=== PATIENT | female | born 1990 | race Caucasian/White ===

== ENCOUNTER 2019-04-21 10:35 | Inpatient (IN) | payer OTHER ==
[~2019-04-21] VITALS: Ht 167.6 cm; Wt 81.1 kg
[2019-04-21] VITALS (30 sets, daily range): BP systolic 111–143; BP diastolic 58–97
[2019-04-21] MEDS ORDERED: LACTATED RINGER'S 1000 ML IV STA (11:02)
--- NOTE | 2019-04-21 11:24 | HPEPDOC ---
Obstetrical History & Physical General Date of Admission 04/21/2019 History of Present Illness Fawn is a 29yo with SIUP at 39w2d by lmp c/w 8wk u/s who presents with regular painful ctx that have become more regular/painful since last night. Has had a bit of bloody/mucousy vaginal discharge. No LOF. Good movement. No f/c/n/v. Chief Complaint: Contractions, term Information Provided By: Patient Care Care: Good Care Dating Final EDC: Apr 26, 2019 Final EDC by: LMP, 1st trimester (US) Antepartum Course Diagnos(e)s Anemia taking ferrous sulfate and vit C Height (inches): 66 Pre- weight (lbs.): 145 Admission Weight (lbs.): 175 Change in Weight (lbs.): 30 Past Medical History Past Obstetrical History : Past Obstetrical History: [employer] History: Human papillomavirus(HPV) (February 2017 HPV pos, normal pap Oct 2017) Past Medical History Medical History Benign Surgical History: Other (ACL repair 2015) Family History Significant Family History: No pertinent family hx Social History Marital Status: Other (has involved boyfriend) Family situation: Spouse/partner home Psychosocial History: No pertinent psych hx * Smoker: non-smoker Alcohol: Denies Drugs: denies Imunizations Tdap status: current Influenza Status: current Allergies Coded Allergies: No Known Allergies (Unverified , 04/21/19) Physical Examination Physical Examination GENERAL: Alert and oriented times three. ABDOMEN: Gravid and non-tender to touch. FETUS: Is vertex (VTX) by sterile vaginal examination (SVE) EXTREMITIES: No edema Vital Signs/I&O Vital Signs Date Time Temp Pulse Resp B/P (MAP) Pulse Ox O2 Delivery O2 Flow Rate FiO2 04/21/19 10:56 98.3 105 18 125/71 (89) Laboratory Data CBC/BMP H/H 10.8/32.9, plt 283 Pertinent Laboratoy Data Blood Type: A+ RBC Antibody Screen: Negative HIV: Negative Hepatitis B: Negative Hepatitis C: Unknown Rapid Plasma Reagin: Nonreactive Rubella: Immune Chlamydia/Gonorrhea: Negative Group B Streptococcus: Negative Glucose Tolerance Test: 102 Anatomy Ultrasound Ultrasound Date: Oct 14, 2018 Placenta Location: Anterior Normal Anatomy: Yes Placenta Previa: No Steroid Therapy Steroid Therapy: No Vaginal Examination Dilation: 6 cm Effacement: 90% Station: -2 Cervical Consistency: Soft Cervical Position: Anterior Presentation: Cephalic presentation Assessment Heart Rate (FHR): 130 Variability: Moderate Accelerations: Positive Decelerations: None Tocometer Contractions: Yes Frequency: regular, every 2-5 min. Duration: greater than 60 seconds Strength: palpated as moderate Assessment/Plan Assessment Fawn is a 29yo with SIUP at 39w2d by lmp c/w 8wk u/s in active labor with SCE /-2. AROM performed with clear fluid noted, well tolerated. Cat I FHRT with ctx q2-3min. Vitals wnl. Benign exam. Cephalic by SCE. GBS negative. PMhx benign. course only significant for anemia on iron. Plan Admit and orient. [employer] and consent. Diet: clear liquids Group B Streptococcus (GBS) negative Labs and intravenous (IV) per unit protocol. Lactated Ringers (LR): Bolus 1000 mL, then at 125 mL/hr. Anticipate normal spontaneous delivery () Candidate for epidural if desired MD Jax North Katrina D MD Apr 21, 2019 11:24
[2019-04-21 11:36] LABS: HEMATOCRIT 34.7 % (36.0-47.0); HEMOGLOBIN 11.7 g/dl (12.0-15.5); MEAN CORPUSCULAR HEMOGLOBIN 29.1 pg (27.0-33.0); MEAN CORPUSCULAR HGB CONC 33.7 g/dl (32.0-36.5); MEAN CORPUSCULAR VOLUME 86.3 fl (80.0-96.0); PLATELET COUNT, AUTOMATED 282 10^3/uL (150-450); RED BLOOD COUNT 4.02 10^6/uL (4.00-5.40); WHITE BLOOD COUNT 15.3 10^3/uL (4.0-10.0)
[2019-04-21] MEDS ORDERED: FENTANYL 2MCG/ML ROPIVACAINE 0.2% IN 0.9% NACL 100ML IVBAG As Ordered ONE (12:24)
[2019-04-21] MEDS ORDERED: OXYTOCIN 30 UNITS IN 0.9% NaCl 500ML IV BAG (J2590) As Ordered ONE (12:54)
[2019-04-21] MEDS: LR 1,000 ML IV SCH ×2 (14:00→15:12)
[2019-04-21] MEDS ORDERED: diphenhydrAMINE INJ 50MG/ML VIAL (J1200) IV PRN (14:15)
[2019-04-21] MEDS ORDERED: LACTATED RINGER'S 1000 ML IV PRN (14:15)
[2019-04-21] MEDS ORDERED: EPIDURAL/PCA KEYS XX PRN (14:15)
[2019-04-21] MEDS ORDERED: ONDANSETRON 4MG/2ML VIAL (J2405) IV PRN (14:15)
[2019-04-21] MEDS ORDERED: ePHEDrine SULFATE 25 MG/5 ML(5MG/ML) SYRINGE IV PRN (14:15)
[2019-04-21] MEDS ORDERED: NALOXONE INJ 0.4 MG/1 ML VIAL (J2310) IV PRN (14:15)
[2019-04-21] MEDS ORDERED: REFRIGERATOR IV KEYS XX PRN (14:15)
[2019-04-21] MEDS ORDERED: FENTANYL/ROPIVACAINE/NACL BAG 100 ML EPIDURAL SCH (14:15)
[2019-04-21] MEDS ORDERED: EPIDURAL COMMENT XX SCH (14:15)
[2019-04-21] MEDS ORDERED: OXYTOCIN DRIP 30 UNITS in APPROPRIATE DILUENT 1 EA IV SCH (16:55)
[2019-04-21] MEDS ORDERED: METHYLERGONOVINE MALEATE 0.2 MG TAB PO PRN (17:00)
[2019-04-21] MEDS ORDERED: DOCUSATE SODIUM 100 MG CAP PO PRN (17:00)
[2019-04-21] MEDS ORDERED: ACETAMINOPHEN 500 MG TAB PO PRN (17:00)
[2019-04-21] MEDS ORDERED: DIBUCAINE 1% OINTMENT 30GM TOP PRN (17:00)
[2019-04-21] MEDS ORDERED: MEASLES,MUMPS,RUBELLA VACCINE INJ (MMR-II) (90707) SC SCH (17:00)
[2019-04-21] MEDS ORDERED: PREN29TA4 PO (18:00)
[2019-04-21] MEDS ORDERED: VITA500T PO (18:00)
[2019-04-21] MEDS ORDERED: IRON1TAB2 PO (18:00)
[2019-04-22] MEDS: IBUPROFEN 800 MG TAB PO PRN ×2 (03:02→21:59)
[2019-04-22 05:00] VITALS: BP 110/61
[2019-04-22] MEDS: PRENATAL VITAMINS CHEWABLE TABLET PO SCH (07:48)
[2019-04-22 18:00] VITALS: BP 110/77
[2019-04-23 06:00] VITALS: BP 113/79
--- NOTE | 2019-04-23 07:19 | DS.PDOC ---
Discharge Summary General Date of Admission Apr 21, 2019 at 11:55 Date of Discharge April 23, 2019 Discharge Summary HOSPITAL COURSE: Ms. Soto is a 29 yo G1 now P1 who underwent an uncomplicated on 21Apr2019 after being admitted for active labor. Her course has been unremarkable. On her day of discharge she met all appropriate discharge criteria. She was ambulating, voiding, tolerating a regular diet, and had minimal pain and lochia. DISCHARGE MEDICATIONS: Please see below. ALLERGIES: Please see below. PHYSICAL EXAMINATION ON DISCHARGE: VITAL SIGNS: Please see below. GENERAL: AAOX3, laying in bed, NAD ABDOMINAL EXAMINATION: Fundus firm at U-2. No fundal tenderness EXTREMITIES: No edema PSYCHIATRIC EXAMINATION: Affect appropriate LABORATORY DATA: Please see below. ACTIVITY: Pelvic rest for 6 weeks DIET: Regular DISCHARGE PLAN: Discharge to home or to boarder status DISPOSITION: Discharge to home or to boarder status on 23Apr2019 DISCHARGE INSTRUCTIONS: 1. Pelvic rest for 6 weeks ITEMS TO FOLLOWUP ON ON OUTPATIENT: 1. appointment in 6 weeks. DISCHARGE CONDITION: Stable. TIME SPENT ON DISCHARGE: Greater than 20 minutes. Mayito Landon DO Vital Signs/I&Os Vital Signs Date Time Temp Pulse Resp B/P (MAP) Pulse Ox O2 Delivery O2 Flow Rate FiO2 04/23/19 06:00 97.9 68 18 113/79 (90) 04/22/19 05:00 98 Discharge Medications Scheduled Ascorbic Acid (Vitamin C) 500 Mg Tablet, 1 TAB PO DAILY, (Reported) Ferrous Sulfate (Iron) 325 Mg Tablet, 1 TAB PO BID, (Reported) Prenat 115/Iron Fum/Folic/Dss ( 19 Tablet) 1 Each Tablet, 1 TAB PO DAILY, (Reported) Allergies Coded Allergies: No Known Allergies (Unverified , 04/21/19) MAYITO LANDON DO Apr 23, 2019 07:19
[2019-04-23] MEDS ORDERED: ACET-683 PO (07:30)
[2019-04-23] MEDS ORDERED: DIBU10OI TOP (07:30)
[2019-04-23] MEDS ORDERED: IBUP80TA PO (07:30)
[2019-04-23] MEDS: PRENATAL VITAMINS CHEWABLE TABLET PO SCH (07:30)
== END 2019-04-23 11:25 | disposition home or self-care (01) | DRG 807 ==
LOC: M LDO 10:35 → M LDI 11:55 → M OBS 18:45
PROVIDERS: ADMIT Obstetrics & Gynecology; ATTEND Advanced Practice Midwife
PROC: 10E0XZZ Delivery of Products of Conception, External Approach (ICD-10-PCS; principal; 2019-04-21)
PROC: 10907ZC Drainage of Amniotic Fluid, Therapeutic from Products of Conception, Via Natural or Artificial Opening (ICD-10-PCS; 2019-04-21)
DX: O80 Encounter for full-term uncomplicated delivery (principal); Z37.0 Single live birth; Z3A.39 39 weeks gestation of pregnancy